=== PATIENT | female | born 1965 | race Caucasian/White ===

== ENCOUNTER → 2018-04-10 06:50 | Outpatient (CLI) | payer OTHER, SELFPAY ==
--- NOTE | 2018-04-10 13:32 | PFTCOMP ---
COMPLETE PULMONARY FUNCTION TEST INTERPRETATION Brief HPI: Patient is a 52 year old female, currently under the care of Dr. Nadir Green, who presents to [facility] for complete pulmonary function tests secondary to diagnosis of COPD. Respiratory therapist reports good effort and reproducible results. Interpretation: Forced expiration spirometry shows a mild large airways obstructive ventilatory defect with an FEV1 of 105% predicted. There is a significant bronchodilator response in FEV1 by ATS criteria. Spirograms are of good quality and plateau slowly, indicating slowly emptying areas of the lungs. The respiratory flow volume loop shows decreased expiratory flow rates at all lung volumes consistent with airway obstruction. Lung volumes by body plethysmography show a normal total lung capacity at 5.43 L, 105% predicted. All other lung volumes are within normal limits. Diffusion capacity by carbon monoxide is normal at 128% predicted. The airway resistance is normal. Compared to previous pulmonary function tests from 10/02/2014, there has been no significant change. Impression: Fully reversible mild large airways obstructive ventilatory defect, diagnostic of asthma.
== END ==
PROVIDERS: Family Provider Family Medicine; PCP Family Medicine; Visit Provider Family Medicine
DX: J44.9 Chronic obstructive pulmonary disease, unspecified (principal)
CPT/HCPCS: 94060; 94726; 94729

== ENCOUNTER → 2018-04-18 07:05 | Outpatient (CLI) | payer OTHER, SELFPAY ==
[2018-04-18 09:09] LABS: AST(SGOT) 13 U/L (15-37); Alanine Aminotransfer ALT/SGPT 22 U/L (13-56); Albumin, Serum 3.5 g/dL (3.2-5.0); Alkaline Phosphatase 105 U/L (45-117); Anion Gap 9 (5-15); BUN 18 mg/dL (7-18); BUN/Creat Ratio 21.5 RATIO (10-20); Bilirubin, Direct 0.09 mg/dL (0.00-0.30); Calcium,Total 8.8 mg/dL (8.5-10.1); Chloride 104 mmol/L (98-107); Cholesterol 173 mg/dL (200); Creatinine, Serum 0.84 mg/dL (0.55-1.02); EST Glomerular Filtration Rate 76 mL/min (>60); Est Glom Filt Rate - Afr Amer 92 mL/min (>60); Globulin 3.5 g/dL (2.2-4.2); Glucose 73 mg/dL (74-106); High Density Lipoprotein 72 mg/dL; Potassium 4.2 mmol/L (3.5-5.1); Sodium Level 138 mmol/L (136-145); Triglycerides 47 mg/dL; Very Low Density Lipoprotein 9 mg/dL (5-40)
== END ==
PROVIDERS: Family Provider Family Medicine; PCP Family Medicine; Visit Provider Nurse Practitioner Family
DX: I49.3 Ventricular premature depolarization (principal); R00.2 Palpitations; Z79.899 Other long term (current) drug therapy
CPT/HCPCS: 36415; 80048; 80061; 80076

== ENCOUNTER → 2018-05-01 07:54 | Outpatient (CLI) | payer OTHER, SELFPAY ==
--- NOTE | 2018-05-01 07:56 | VDLE_ITS ---
Reason For Study: swelling RIGHT CFV is compressible, spontaneous, phasic, competent and demonstrates normal augmentation. FV is compressible, spontaneous, phasic, competent and demonstrates normal augmentation. POP V is compressible, spontaneous, phasic, competent and demonstrates normal augmentation. T/P Trunk is compressible. PTV is compressible. RT PerV is compressible. SFJ is incompetent > .5 seconds GSV is competent above and below knee. SSV is competent. Procedure Exam performed in department. The exam was diagnostic. Interpretation Summary 1. riht leg with no DVT, no SVT and no significant reflux.,. Ordering Physician: Rafael Villalobos Referring Physician: Nadir Green Performed By: Diana Dorantes, RDCS, RVT
== END ==
PROVIDERS: Family Provider Family Medicine; PCP Family Medicine; Visit Provider Surgery Vascular Surgery
DX: M79.89 Other specified soft tissue disorders (principal); M79.609 Pain in unspecified limb
CPT/HCPCS: 93971

== ENCOUNTER → 2018-09-10 15:33 | Outpatient (CLI) | payer OTHER, SELFPAY ==
[2018-09-10 15:33] VITALS: BMI 21.6
--- NOTE | 2018-09-10 15:36 | RAD_ITS ---
STUDY: X-RAY CHEST REASON FOR EXAM: Female, 52 years old. Cough. TECHNIQUE: PA and lateral views of the chest. COMPARISON: Chest, August 19, 2014. CT of the chest, April 08, 2017. FINDINGS: The lungs are hyperexpanded. There is no focal mass or infiltrate. There is no demonstrated pleural abnormality. Normal size heart. Normal mediastinum and yolanda. Normal visualized pulmonary arteries. Normal visualized aortic arch and descending thoracic aorta. Normal visualized thoracic spine. Normal visualized ribs, clavicles, and shoulders. There is no demonstrated abnormality of the visualized soft tissue structures of the upper abdomen. RAD/Chest PA and Lateral IMPRESSION: Probable COPD without acute cardiopulmonary disease or interval change. Electronically Signed: Alex Andrews DO at 15:51 EST Tel [phone], Service support ,
== END ==
PROVIDERS: Family Provider Family Medicine; PCP Family Medicine; Referring Provider Physician Assistant; Visit Provider Physician Assistant
DX: R05 Cough (principal)
CPT/HCPCS: 71046

== ENCOUNTER → 2018-09-11 14:13 | Outpatient (CLI) | payer OTHER, SELFPAY ==
[2018-09-10 15:33] VITALS: BMI 21.6
== END ==
PROVIDERS: Family Provider Family Medicine; PCP Family Medicine; Referring Provider Physician Assistant; Visit Provider Physician Assistant
DX: J02.9 Acute pharyngitis, unspecified (principal)
CPT/HCPCS: 87081

== ENCOUNTER → 2019-05-13 07:30 | Outpatient (CLI) | payer OTHER, SELFPAY ==
[2018-09-10 15:33] VITALS: BMI 21.6
[2019-05-13 08:24] LABS: Absolute Lymphocyte Count 2.02 X10^3/uL (0.83-4.51); Absolute Neutrophil Count 3.5 X10^3/uL (2.0-7.7); Basophil# 0.04 X10^3/uL; Basophil% 0.6 % (0-1); Eosinophil# 0.08 X10^3/uL; Eosinophils% 1.3 % (0-5); Hemoglobin 13.6 g/dL (12.0-15.0); Lymphocyte # 2.02 X10^3/ul (4.0); Lymphocyte % 32.8 % (19-41); Mean Corp Hgb Conc 33.2 g/dL (32-36); Mean Corpuscular Hgb 30.3 pg (27.0-32.0); Mean Corpuscular Volume 91.3 fL (81-99); Monocyte# 0.53 X10^3/uL; Monocyte% 8.6 % (0-10); NRBC Flagged by Analyzer 0 % (0-5); Neutrophil # 3.47 X10^3/uL (2.7-7.7); Neutrophil % 56.4 % (47-70); Platelet Count 292 K/mm3 (150-450); RBC Distribution Width SD 40.3 fl (35.1-43.9); Red Blood Count 4.49 M/mm3 (4.2-5.4); White Blood Count 6.2 K/mm3 (4.4-11.0)
[2019-05-13 09:00] LABS: AST(SGOT) 15 U/L (15-37); Alanine Aminotransfer ALT/SGPT 21 U/L (13-56); Albumin, Serum 3.9 g/dL (3.2-5.0); Alkaline Phosphatase 125 U/L (45-117); Anion Gap 7 (5-15); BUN 20 mg/dL (7-18); BUN/Creat Ratio 20.8 RATIO (10-20); Bilirubin, Direct 0.14 mg/dL (0.00-0.30); Calcium,Total 9.3 mg/dL (8.5-10.1); Chloride 108 mmol/L (98-107); Cholesterol 186 mg/dL (200); Creatinine, Serum 0.96 mg/dL (0.55-1.02); EST Glomerular Filtration Rate 65 mL/min (>60); Est Glom Filt Rate - Afr Amer 78 mL/min (>60); Globulin 3.4 g/dL (2.2-4.2); Glucose 84 mg/dL (74-106); High Density Lipoprotein 69 mg/dL; Protein, Total 7.3 g/dL (6.4-8.2); Sodium Level 142 mmol/L (136-145); Thyroid Stim Hormone (TSH) 2.16 uIU/mL (0.358-3.74); Triglycerides 85 mg/dL; Very Low Density Lipoprotein 17 mg/dL (5-40)
--- NOTE | 2019-05-13 10:13 | ECHOD_ITS ---
Reason For Study: Arrhythmia Procedure This was a 2D Doppler, Color Flow transthoracic echocardiogram. Exam performed in department. Left Ventricle Normal LV size. Left ventricular systolic function is normal. The estimated ejection fraction is 60 %. Normal diastology for age. No regional wall motion abnormalities noted. Right Ventricle Normal RV size. Normal systolic function. Atria Normal left atrium. Normal right atrium. Mitral Valve Normal mitral valve. Mild (1+) eccentric mitral valve insufficiency. Tricuspid Valve Normal tricuspid valve. Aortic Valve Normal aortic valve. Trisinus/trileaflet aortic valve. Pulmonic Valve Normal pulmonic valve. Great Vessels Normal aortic root. The pulmonary artery is normal size. Normal inferior vena cava. Pericardium/Pleural No pericardial effusion. MMode/2D Measurements & Calculations LVIDd: 4.1 cm IVSd: 0.66 cm Ao root diam: 2.7 cm LVIDs: 3.0 cm LVPWd: 0.71 cm RVDd: 2.7 cm FS: 27.2 % LAV(MOD-bp): 25.2 ml EDV(MOD-sp4): 50.9 ml EDV(MOD-sp2): 70.7 ml LAV(MOD-bp) Indexed: 15.3 ml/m2 ESV(MOD-sp4): 18.4 ml EF(MOD-sp2): 48.7 % LAV(MOD-sp2): 17.8 ml EF(MOD-sp4): 63.9 % LAV(MOD-sp4): 33.7 ml SV(MOD-sp4): 32.5 ml SV(MOD-sp2): 34.5 ml LA A4 area: 14.0 cm2 LA dimension(2D): 2.8 cm RA A4 area: 12.2 cm2 Doppler Measurements & Calculations MV E max richard: 53.7 cm/sec Lat Peak E' Richard: 12.7 cm/sec Med Peak E' Richard: 11.0 cm/sec MV A max richard: 68.0 cm/sec E/E' lat: 4.2 E/E' med: 4.9 MV E/A: 0.79 Ao V2 max: 100.4 cm/sec LV V1 max: 80.7 cm/sec PA V2 max: 79.2 cm/sec Ao max P.0 mmHg LV V1 max P.6 mmHg TR max richard: 233.5 cm/sec TR max P.9 mmHg Interpretation Summary Normal LV size. Left ventricular systolic function is normal. The estimated ejection fraction is 60 %. Mild (1+) eccentric mitral valve insufficiency. The MR is unchanged The global longitudinal strain is normal. The global longitudinal strain = -18.5 % (normal). Compared to previous study, the left ventricular systolic function is the same.. Ordering Physician: Calso Kohli Referring Physician: Nadir Green MD Performed By: Laure Sweet RDCS
== END ==
PROVIDERS: Family Provider Family Medicine; PCP Family Medicine; Referring Provider Internal Medicine Cardiovascular Disease; Visit Provider Internal Medicine Cardiovascular Disease
DX: R00.2 Palpitations (principal)
CPT/HCPCS: 36415; 80048; 80061; 80076; 84443; 85025; 93306

== ENCOUNTER → 2019-06-08 09:21 | Outpatient (CLI) | payer OTHER, SELFPAY ==
[2019-05-14 16:10] VITALS: BMI 21.6
== END ==
PROVIDERS: Family Provider Family Medicine; PCP Family Medicine; Referring Provider Internal Medicine Cardiovascular Disease; Visit Provider Internal Medicine Cardiovascular Disease
DX: R00.2 Palpitations (principal)
CPT/HCPCS: 93225; 93226

== ENCOUNTER → 2019-10-04 14:35 | Outpatient (CLI) | payer OTHER, SELFPAY ==
[2019-10-04 08:36] VITALS: BMI 21.6
== END ==
PROVIDERS: PCP Family Medicine; Referring Provider Physician Assistant Surgical; Visit Provider Physician Assistant Surgical
DX: J02.9 Acute pharyngitis, unspecified (principal)
CPT/HCPCS: 87880

== ENCOUNTER → 2020-02-24 11:47 | Outpatient (CLI) | payer OTHER, SELFPAY ==
[2019-10-04 08:36] VITALS: BMI 21.6
[2020-02-24 15:20] LABS: Absolute Lymphocyte Count 1.68 X10^3/uL (0.83-4.51); Absolute Neutrophil Count 3.5 X10^3/uL (2.0-7.7); Basophil# 0.04 X10^3/uL; Basophil% 0.7 % (0-1); Eosinophil# 0.04 X10^3/uL; Eosinophils% 0.7 % (0-5); Hematocrit 40.8 % (37-47); Hemoglobin 12.8 g/dL (12.0-15.0); Lymphocyte # 1.68 X10^3/ul (4.0); Lymphocyte % 29.7 % (19-41); Mean Corp Hgb Conc 31.4 g/dL (32-36); Mean Corpuscular Hgb 29.2 pg (27.0-32.0); Mean Corpuscular Volume 93.2 fL (81-99); Mean Platelet Vol. 9.2 fl (6.2-12.0); Monocyte% 7.1 % (0-10); NRBC Flagged by Analyzer 0 % (0-5); Neutrophil # 3.49 X10^3/uL (2.7-7.7); Neutrophil % 61.6 % (47-70); Platelet Count 316 K/mm3 (150-450); RBC Distribution Width CV 12.6 % (11.6-14.6); RBC Distribution Width SD 42.7 fl (35.1-43.9); Red Blood Count 4.38 M/mm3 (4.2-5.4); White Blood Count 5.7 K/mm3 (4.4-11.0)
[2020-02-24 15:39] LABS: ALB/GLOB Ratio 1.1 RATIO (0.9-2.4); AST(SGOT) 18 U/L (15-37); Alanine Aminotransfer ALT/SGPT 22 U/L (13-56); Alkaline Phosphatase 154 U/L (45-117); Anion Gap 3 (5-15); BUN 18 mg/dL (7-18); BUN/Creat Ratio 23.5 RATIO (10-20); Calcium,Total 9.3 mg/dL (8.5-10.1); Chloride 107 mmol/L (98-107); Creatinine, Serum 0.77 mg/dL (0.55-1.02); EST Glomerular Filtration Rate 83 mL/min (>60); Est Glom Filt Rate - Afr Amer 101 mL/min (>60); Globulin 3.7 g/dL (2.2-4.2); Glucose 87 mg/dL (74-106); Potassium 3.8 mmol/L (3.5-5.1); Protein, Total 7.7 g/dL (6.4-8.2); Sodium Level 140 mmol/L (136-145); Thyroid Stim Hormone (TSH) 1.26 uIU/mL (0.358-3.74)
[2020-02-25 07:46] LABS: SARS-COV-2 TOTAL ABS Nonreactive (Nonreactive)
== END ==
PROVIDERS: PCP Family Medicine; Referring Provider Family Medicine; Visit Provider Family Medicine
DX: B34.9 Viral infection, unspecified (principal); I47.1 Supraventricular tachycardia
CPT/HCPCS: 80053; 84443; 85025; 86769; G2023

== ENCOUNTER → 2020-03-12 15:02 | Outpatient (CLI) | payer OTHER, SELFPAY ==
[2019-10-04 08:36] VITALS: BMI 21.6
== END ==
PROVIDERS: PCP Family Medicine; Visit Provider Internal Medicine Cardiovascular Disease
DX: B34.9 Viral infection, unspecified (principal)
CPT/HCPCS: 87635; 94799; C9803; U0003

== ENCOUNTER → 2020-06-20 11:26 | Outpatient (CLI) | payer OTHER, SELFPAY ==
[2019-10-04 08:36] VITALS: BMI 21.6
--- NOTE | 2020-06-20 11:30 | RAD_ITS ---
STUDY: X-RAY CHEST REASON FOR EXAM: Female, 54 years old. general illness x 2 weeks, negative COVID test -- tachycardia with chest pain/ache and increase SOB TECHNIQUE: PA and lateral views of the chest. COMPARISON: 09/02/2018 FINDINGS: The lungs are clear and expanded. There is no demonstrated pleural abnormality. Normal size heart. Normal mediastinum and yolanda. Normal visualized pulmonary arteries. Normal visualized aortic arch and descending thoracic aorta. Normal visualized thoracic spine. Normal visualized ribs, clavicles, and shoulders. There is no demonstrated abnormality of the visualized soft tissue structures of the upper abdomen. RAD/Chest PA and Lateral IMPRESSION: Normal x-ray examination of the chest. Electronically Signed: Mario Steiner MD at 12:14 EST Tel , Service support ,
[2020-06-20 12:12] LABS: D-Dimer Quantitative (DVT/PE) 0.44 FEU/ug/m (0.27-0.49)
[2020-06-20 12:22] LABS: BNP,B-Type NATRIURETIC PEPTIDE 14.3 pg/mL (0-100)
[2020-06-20 12:27] LABS: Anion Gap 4 (5-15); BUN 23 mg/dL (7-18); BUN/Creat Ratio 28.1 RATIO (10-20); CRP, High Sensitivity Cardiac 1.21 mg/L; Chloride 106 mmol/L (98-107); Creatinine, Serum 0.82 mg/dL (0.55-1.02); EST Glomerular Filtration Rate 77 mL/min (>60); Est Glom Filt Rate - Afr Amer 94 mL/min (>60); Glucose 90 mg/dL (74-106); Sodium Level 140 mmol/L (136-145)
== END ==
PROVIDERS: PCP Family Medicine; Visit Provider Internal Medicine Cardiovascular Disease
DX: R06.02 Shortness of breath (principal)
CPT/HCPCS: 36415; 71046; 80048; 83880; 84484; 85379; 86141

== ENCOUNTER 2021-08-10 16:53 | Outpatient (CLI) | payer OTHER, SELFPAY ==
[2021-08-10 16:55] VITALS: BP 129/73; PULSE 105; RESP 16; TEMP 37.1; O2SAT 98; BMI 20.7
[2021-08-10] MEDS: 0.9% Saline Lock 10 ML Syringe IV (17:00)
[2021-08-10 17:31] VITALS: BP 110/68; PULSE 108; RESP 18; TEMP 37.4; O2SAT 94
[2021-08-10 18:32] VITALS: BP 111/66; PULSE 94; RESP 16; TEMP 36.8; O2SAT 98
== END 2021-08-10 18:47 | disposition home or self-care (01) ==
LOC: MS3OUT 16:53 → MS3 16:54
PROVIDERS: PCP Family Medicine; Referring Provider Nurse Practitioner Adult Health; Visit Provider Nurse Practitioner Adult Health
DX: Z23 Encounter for immunization (principal); U07.1 COVID-19; J45.909 Unspecified asthma, uncomplicated
CPT/HCPCS: J7050; M0245; Q0245; A4216

== ENCOUNTER 2021-08-16 10:03 | Outpatient (CLI) | payer OTHER, SELFPAY ==
--- NOTE | 2021-08-16 10:07 | RAD_ITS ---
STUDY: X-RAY CHEST REASON FOR EXAM: Female, 55 years old. sob TECHNIQUE: PA and lateral views of the chest. COMPARISON: 06/30/2020 FINDINGS: The lungs are clear and expanded. There is no demonstrated pleural abnormality. Normal size heart. Normal mediastinum and yolanda. Normal visualized pulmonary arteries. Normal visualized aortic arch and descending thoracic aorta. There is a dextroscoliosis of the thoracic spine. Normal visualized ribs, clavicles, and shoulders. There is no demonstrated abnormality of the visualized soft tissue structures of the upper abdomen. RAD/Chest PA and Lateral IMPRESSION: Normal x-ray examination of the chest. Electronically Signed: Mario Steiner MD at 13:06 EST Tel , Service support ,
== END 2021-08-16 23:59 | disposition short-term general hospital (02) ==
LOC: MTRAD 10:05
PROVIDERS: PCP Family Medicine; Referring Provider Physician Assistant Medical; Visit Provider Physician Assistant Medical
DX: U07.1 COVID-19 (principal); R06.02 Shortness of breath; J45.909 Unspecified asthma, uncomplicated
CPT/HCPCS: 71046

== ENCOUNTER → 2022-01-24 | Outpatient (CLI) | payer OTHER, SELFPAY | END | disposition home or self-care (01) | LOC: PSN 08:50 | PROVIDERS: PCP Family Medicine; Visit Provider Internal Medicine Cardiovascular Disease | DX: I47.1 Supraventricular tachycardia (principal) | CPT/HCPCS: 93225; 93226 ==

== ENCOUNTER → 2022-04-04 | Outpatient (CLI) | payer OTHER, SELFPAY ==
[2022-04-04 10:45] LABS: ALB/GLOB Ratio 1.1 RATIO (0.9-2.4); AST(SGOT) 17 U/L (15-37); Alanine Aminotransfer ALT/SGPT 21 U/L (13-56); Albumin, Serum 3.9 g/dL (3.2-5.0); Alkaline Phosphatase 139 U/L (45-117); Anion Gap 5 (5-15); BUN 16 mg/dL (7-18); Calcium,Total 9.9 mg/dL (8.5-10.1); Chloride 108 mmol/L (98-107); Cholesterol 187 mg/dL (200); Creatinine, Serum 0.76 mg/dL (0.55-1.02); EST Glomerular Filtration Rate 83 mL/min (>60); Est Glom Filt Rate - Afr Amer 101 mL/min (>60); Globulin 3.5 g/dL (2.2-4.2); Glucose 85 mg/dL (74-106); High Density Lipoprotein 70 mg/dL; Potassium 3.7 mmol/L (3.5-5.1); Protein, Total 7.4 g/dL (6.4-8.2); Sodium Level 139 mmol/L (136-145); Thyroid Stim Hormone (TSH) 1.72 uIU/mL (0.358-3.74); Triglycerides 96 mg/dL; Very Low Density Lipoprotein 19 mg/dL (5-40)
== END | disposition home or self-care (01) ==
LOC: MFPLAB 08:53
PROVIDERS: PCP Family Medicine; Visit Provider Family Medicine
DX: Z00.00 Encounter for general adult medical examination without abnormal findings (principal)
CPT/HCPCS: 36415; 80053; 80061; 84443

== ENCOUNTER 2022-11-21 09:00 | Outpatient (RCR) | payer OTHER, SELFPAY ==
--- NOTE | 2022-10-18 13:51 | HP.PTEVAL ---
Patient's Visit Information DAVIN STANLEY is a 56 year old F referred to Physical Therapy by Dr. Nadir Green MD with a diagnosis of Bilateral Hip and Knee pain. Date of Evaluation: 10/18/22 Physical Therapist: Racquel Decker DPT - Visit Plan Frequency: 2x /Week Duration: 4 Weeks Plan: Pt is very active- needs a HEP for hip and core strength/stabilization- (Ex: SB Ex, inchworms, etc). HEP Given IE: prone hip extension, clams, sit to stand without valgus - Subjective Patient reports that she has had medial knee pain for about a year- had x-ray and MRI on the right- then the left knee started. She felt like maybe she was too aggressive on her [place] [employer] standing- she backed off and isn't doing it now. Her pain is worse when she is squatting down. Its hard to get up/down off the floor and is now having discomfort in the posterior knee. She exercises 3-4x a week she is 4.2 miles per hour walking- 40-60 min- she is doing some upper body strength and sit ups. She has hip pain and knee pains that comes and goes and moves around. Worst: 10/10 in the last week with it being in the left knee. Sleep: disturbed- mostly the knees. She has also been painting up/down the ladder a lot. Best: 0/10 Eases: rest. Describes the pain as dull and achy- does have sharp shooting when she twists the knees. But it goes away quickly. 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 Work: sitting- works at home. [facility] membership PMHx: elbow surgery, right ankle surgery, High HR. Meds: verapamil - Objective Posture: fair throughout. Gait: pes planus bilateral left>right. HR/TR: able without UE A. SLS: 5-10 sec with moderate hip drop. Squat: valgus bilaterally. ROM: WFL in all planes. Strength: Core: fair, Hip: 4/5 throughout, Knee: 5/5, Ankle: 5/5. Flex: HS: mild, Gastroc: moderate. Special Test: LLD: negative, Pelvic Alignment: WFL. Palpation: tender along medial joint line - Balance/Special Test Scores Lower Extremity Functional Score: 50 - Goals Goal 1:: Patient will be I with HEP and progression Goal Time Frame: 4-6 Weeks Goal 2:: Patient will maintain proper posture t/o tx session to demo increased core s/s Goal Time Frame: 4-6 Weeks Goal 3:: Patient will squat without valgus at the knees Goal Time Frame: 4-6 Weeks Goal 4:: Patient will report 80% improvement Goal Time Frame: 4-6 Weeks - Rehabilitation Potential Physical Therapy Diagnosis: Patient presents with hypomobility- she has decreased LE and core strength/stabilization and muscular endurance leading to valgus and increased pain with ADL's. Rehabilitation Potential: Good - Anticipated Interventions Patient/Client Instruction: Educate patient on: Benefits of Fitness Program Therapeutic Exercise to Include: Strength training, Endurance training, Balance training, Coordination, Agility training, Body mechanics, Postural training, Flexibilty training, Gait and locomotor training, Neuromotor development, Dynamic Lumbar Stabilization, Scapular Strength/Stabilization Thank you for the opportunity to evaluate your patient. For Medicare and Medicare HMO plans, please review the plan of care and approve it. It will need to be FAXED BACK to us at [phone] for Medicare purposes. For Medicare only, by signing this I certify the plan of care. Please let me know if there are questions or concerns regarding this plan of care. Physician Signature: Date:
--- NOTE | 2022-11-21 10:46 | HP.PTREVAL_ITS ---
Dr. Nadir Green MD, It has been my pleasure to treat DAVIN STANLEY over the last 8 visits for Bilateral Hip and Knee pain. Please see the progress note below for an update on the physical therapy plan of care! Subjective: Patient reports that the exercises are great- she has only had 3 nights over the last month- she feels that she just overdid the exercises. She is doing her exercises at home- she would like to Objective/Function: Posture: fair throughout. Gait: no deviation noted. HR/TR: able without UE A. SLS: 5-10 sec with no hip drop. Squat: good mechanics ROM: WFL in all planes. Strength: Core: fair, Hip: 4+/5 throughout, Knee: 5/5, Ankle: 5/5. Flex: HS: mild, Gastroc: moderate. Special Test: LLD: negative, Pelvic Alignment: WFL. 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 Pt is very active- needs a HEP for hip and core strength/stabilization Balance/Gait/Functional tests - Balance/Special Test Scores Lower Extremity Functional Score: 71 Goals Goal 1:: Patient will be I with HEP and progression Goal Time Frame: 4-6 Weeks Goal Progress: Goal Met Goal 2:: Patient will maintain proper posture t/o tx session to demo increased core s/s Goal Time Frame: 4-6 Weeks Goal Progress: Goal Met Goal 3:: Patient will squat without valgus at the knees Goal Time Frame: 4-6 Weeks Goal Progress: Goal Met Goal 4:: Patient will report 80% improvement Goal Time Frame: 4-6 Weeks Goal Progress: Goal Met Anticipated Interventions Patient/Client Instruction: Educate patient on: Benefits of Fitness Program Therapeutic Exercise to Include: Strength training, Endurance training, Balance training, Coordination, Agility training, Body mechanics, Postural training, Flexibilty training, Gait and locomotor training, Neuromotor development, Dynamic Lumbar Stabilization, Scapular Strength/Stabilization Please do not hesitate to contact me at [phone] by phone or if you have questions or concerns regarding this new plan of care! Sincerely, Racquel Decker DPT
--- NOTE | 2023-02-27 12:31 | HP.PTDCSUM ---
Discharge Summary D/C summary: It has been my pleasure to treat DAVIN STANLEY referred by Dr. Nadir Green MD, with the diagnosis of Bilateral Hip and Knee pain for a total of 8 visit(s). Discharge Date: Please see the following information for a summary of their discharge status. Subjective Subjective: Patient reports that the exercises are great- she has only had 3 nights over the last month- she feels that she just overdid the exercises. She is doing her exercises at home- she would like to Overall Improvement % Improvement: 85 Objective Objective/Function: Posture: fair throughout. Gait: no deviation noted. HR/TR: able without UE A. SLS: 5-10 sec with no hip drop. Squat: good mechanics ROM: WFL in all planes. Strength: Core: fair, Hip: 4+/5 throughout, Knee: 5/5, Ankle: 5/5. Flex: HS: mild, Gastroc: moderate. Special Test: LLD: negative, Pelvic Alignment: WFL. 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 Thank you for the referral of this patient. Sincerely, Racquel Decker, DPT Balance/Gait/Functional tests Balance/Special Test Scores Lower Extremity Functional Score: 71
== END 2022-11-21 19:00 | disposition home or self-care (01) ==
LOC: PT 09:00
PROVIDERS: PCP Family Medicine; Referring Provider Family Medicine; Visit Provider Family Medicine
DX: M76.51 Patellar tendinitis, right knee (principal); M76.52 Patellar tendinitis, left knee; M25.551 Pain in right hip; M25.552 Pain in left hip
CPT/HCPCS: 97110; 97162; 97164

== ENCOUNTER → 2022-11-28 | Outpatient (CLI) | payer OTHER, SELFPAY ==
[2022-11-28 18:07] LABS: Hepatitis B Surface Antibody Reactive; Rubella IgG Reactive (Nonreactive)
[2022-11-30 05:07] LABS: Mumps Antibody,IgG < 9.0 AU/mL (Immune >10.9); V-Zoster IgG (Immunity) 1865 index (Immune >165)
== END | disposition home or self-care (01) ==
LOC: MFPLAB 11:56
PROVIDERS: PCP Family Medicine; Visit Provider Family Medicine
DX: Z01.84 Encounter for antibody response examination (principal)
CPT/HCPCS: 36415; 86706; 86735; 86762; 86765; 86787

== ENCOUNTER → 2023-07-18 | Outpatient (CLI) | payer OTHER, SELFPAY ==
[2023-07-18 12:20] LABS: Absolute Lymphocyte Count 1.69 X10^3/uL (0.83-4.51); Absolute Neutrophil Count 2.4 X10^3/uL (2.0-7.7); Basophil# 0.03 X10^3/uL; Basophil% 0.7 % (0-1); Eosinophil# 0.06 X10^3/uL; Eosinophils% 1.3 % (0-5); Hematocrit 39.2 % (37-47); Hemoglobin 12.5 g/dL (12.0-15.0); Lymphocyte # 1.69 X10^3/ul (0.83-4.51); Lymphocyte % 36.8 % (19-41); Mean Corp Hgb Conc 31.9 g/dL (32-36); Mean Corpuscular Hgb 29.3 pg (27.0-32.0); Mean Platelet Vol. 9.3 fl (6.2-12.0); Monocyte# 0.39 X10^3/uL; Monocyte% 8.5 % (0-10); NRBC Flagged by Analyzer 0 % (0-5); Neutrophil # 2.41 X10^3/uL (2.7-7.7); Neutrophil % 52.5 % (47-70); Platelet Count 235 K/mm3 (150-450); RBC Distribution Width CV 12.7 % (11.6-14.6); RBC Distribution Width SD 42.9 fl (35.1-43.9); Red Blood Count 4.26 M/mm3 (4.2-5.4); White Blood Count 4.6 K/mm3 (4.4-11.0)
[2023-07-18 12:51] LABS: Vitamin D,25 Hydroxy 67.5 ng/mL
[2023-07-18 13:13] LABS: ALB/GLOB Ratio 1.2 RATIO (0.9-2.4); AST(SGOT) 16 U/L (15-37); Alanine Aminotransfer ALT/SGPT 26 U/L (13-56); Albumin, Serum 3.8 g/dL (3.2-5.0); Alkaline Phosphatase 142 U/L (45-117); Anion Gap 3 (5-15); BUN 18 mg/dL (7-18); BUN/Creat Ratio 24.4 RATIO (10-20); Calcium,Total 9.6 mg/dL (8.5-10.1); Chloride 108 mmol/L (98-107); Cholesterol 199 mg/dL (200); Creatinine, Serum 0.74 mg/dL (0.55-1.02); EST Glomerular Filtration Rate 86 mL/min (>60); Est Glom Filt Rate - Afr Amer 104 mL/min (>60); Globulin 3.2 g/dL (2.2-4.2); Glucose 87 mg/dL (74-106); High Density Lipoprotein 73 mg/dL; Magnesium 2.2 mg/dL (1.6-2.6); Potassium 4.1 mmol/L (3.5-5.1); Sodium Level 140 mmol/L (136-145); Triglycerides 64 mg/dL; Very Low Density Lipoprotein 13 mg/dL (5-40)
[2023-07-18 13:49] LABS: PTHIN 50.5 pg/mL (18.4-80.1)
== END | disposition home or self-care (01) ==
LOC: MTLAB 10:16
PROVIDERS: PCP Family Medicine; Referring Provider Family Medicine; Visit Provider Family Medicine
DX: R74.8 Abnormal levels of other serum enzymes (principal); Z13.220 Encounter for screening for lipoid disorders
CPT/HCPCS: 36415; 80053; 80061; 82306; 83735; 83970; 85025

== ENCOUNTER → 2024-02-20 | Outpatient (CLI) | payer BC, SELFPAY | END | disposition home or self-care (01) | PROVIDERS: PCP Family Medicine; Visit Provider Family Medicine | DX: Z02.1 Encounter for pre-employment examination (principal) | CPT/HCPCS: 36415 ==